=== PATIENT | male | born 1950 | race Caucasian/White ===

== ENCOUNTER 2020-12-10 10:15 | Outpatient (CLI) | payer BC, SELFPAY ==
[2020-12-10 10:34] VITALS: BP 143/92; PULSE 70; RESP 16; TEMP 36.7; O2SAT 94; BMI 34.8
[2020-12-10 11:30] VITALS: BP 137/84; PULSE 68; RESP 18; TEMP 36.7; O2SAT 96
[2020-12-10 12:41] VITALS: BP 127/81; PULSE 63; RESP 14; TEMP 37.2; O2SAT 98
== END 2020-12-10 10:16 | disposition home or self-care (01) ==
PROVIDERS: PCP Physician Assistant Medical; Visit Provider Family Medicine
DX: U07.1 COVID-19 (principal)
CPT/HCPCS: 96365